=== PATIENT | female | born 1970 | race Caucasian/White ===

== ENCOUNTER → 2018-08-27 | Outpatient (CLI) | payer OTHER | LOC: COL.RAD 08:22 | DX: M25.512 Pain in left shoulder (principal); M25.511 Pain in right shoulder | CPT/HCPCS: J3301; Q9967 ==

== ENCOUNTER → 2020-07-09 | Outpatient (CLI) | payer OTHER | LOC: COL.RAD 13:00 | DX: M25.512 Pain in left shoulder (principal) | CPT/HCPCS: J3301; Q9967 ==

== ENCOUNTER 2022-02-05 08:44 | Emergency (ER) | payer OTHER ==
[~2022-02-05] VITALS: Ht 157.5 cm; Wt 93.2 kg
[2022-02-05 08:50] VITALS: BP 106/73; TEMP 98.3
[2022-02-05] MEDS ORDERED: ATARAX 25MG25 MG/TAB PO (10:14)
[2022-02-05] MEDS ORDERED: PREDNISONE50 MG PO (10:14)
[2022-02-05 10:22] VITALS: PULSE 81
== END 2022-02-05 10:22 | disposition home or self-care (01) ==
LOC: COL.ER 08:44
DX: L25.9 Unspecified contact dermatitis, unspecified cause (principal); L50.9 Urticaria, unspecified

== ENCOUNTER 2024-02-26 15:07 | Emergency (ER) | payer OTHER ==
[~2024-02-26] VITALS: Ht 154.9 cm; Wt 89.1 kg
[~2024-02-26 15:07] MED LIST: ATARAX 25MG25 MG/TAB PO; PREDNISONE50 MG PO
[2024-02-26 18:15] VITALS: BP 117/73; PULSE 71; TEMP 98.4
== END 2024-02-26 18:15 | disposition home or self-care (01) ==
LOC: COL.ER 15:07
DX: Z71.1 Person with feared health complaint in whom no diagnosis is made (principal)